=== PATIENT | male | born 1995 | race American Indian/Alaskan Native ===

== ENCOUNTER 2020-08-31 08:18 | Emergency (ER) | payer SELFPAY ==
--- NOTE | 2020-08-31 08:32 | Event Note ---
ED Screening Note Date of service: 08/31/20 Time: 08:31 ED Screening Note: Patient complains of lower abdominal pain and blood in the stools x2 days Denies nausea/vomiting Positive sign tenderness to palpation in RLQ on exam This initial assessment/diagnostic orders/clinical plan/treatment(s) is/are subject to change based on patients health status, clinical progression and re- assessment by fellow clinical providers in the ED. Further treatment and workup at subsequent clinical providers discretion. Patient/guardian urged not to elope from the ED as their condition may be serious if not clinically assessed and managed. Initial orders include: Labs CT
[2020-08-31 09:43] LABS: Basophils % (Auto) 2.5 % (0.0-1.8); Eosinophils % (Auto) 1.4 % (0.0-4.3); Hematocrit 41.6 % (35.5-45.6); Hemoglobin 13.8 gm/dl (11.8-15.2); Mean Corpuscular HGB Conc 33 % (32-34); Mean Corpuscular Volume 92 fl (84-94); Monocytes % (Auto) 8.4 % (0.0-7.3); Platelet Count 144 K/mm3 (140-440); Red Blood Count 4.53 M/mm3 (3.65-5.03); Red Cell Distribution Width 13.9 % (13.2-15.2)
[2020-08-31 09:44] LABS: Basophils # (Auto) 0.1 K/mm3 (0.0-0.1); Eosinophils # (Auto) 0.1 K/mm3 (0.0-0.4); Lymphocytes # (Auto) 1.3 K/mm3 (1.2-5.4); Monocytes # (Auto) 0.4 K/mm3 (0.0-0.8)
[2020-08-31 09:55] LABS: INR 0.88 (0.87-1.13)
[2020-08-31 09:56] LABS: Partial Thromboplastin Time 30.4 Sec. (24.2-36.6)
[2020-08-31 10:00] LABS: Alanine Aminotransferase 6 units/L (7-56); Albumin 3.8 g/dL (3.9-5); BUN/Creatinine Ratio 11; Blood Urea Nitrogen 10 mg/dL (9-20); Calcium 9.3 mg/dL (8.4-10.2); Hemolysis Index 2
[2020-08-31] MEDS ORDERED: fentaNYL 100 MCG/2 ML INJ IV ONE (10:08)
[2020-08-31] MEDS ORDERED: ONDANSETRON 4 MG/2 ML INJ IV ONE (10:08)
--- NOTE | 2020-08-31 10:10 | Emergency Department Report ---
HPI - General Chief Complaint: Abdominal Pain Time Seen by Provider: 08/31/20 08:29 - HPI HPI: Room 37 Patient is a 25-year-old male present with a chief complaint of abdominal pain and hematochezia. The patient states for the past 2 days she has had a constant lower abdominal pain. Patient states he also noticed a blood clot in the toilet after having a bowel movement. Patient admits to rectal pain with bowel movements. Patient denies nausea vomiting or diarrhea. Patient denies history of fever. Patient currently gives his pain a score of 8/10 ED Past Medical Hx - Past Medical History Previous Medical History?: Yes Hx HIV: Yes - Surgical History Past Surgical History?: No - Family History Family history: no significant - Social History Smoking Status: Current Some Day Smoker Substance Use Type: Alcohol (Occasional), Marijuana - Medications Home Medications: Home Medications Medication Instructions Recorded Confirmed Last Taken Type Hydrocortisone [Anucort-HC SUPPOS] 25 mg RC BID #10 supp.rect 08/31/20 Unknown Rx traMADoL [Ultram] 50 mg PO Q6HR PRN #10 tablet 08/31/20 Unknown Rx ED Review of Systems ROS: Stated complaint: STOMACH PAIN/BLLOD IN STOOL Other details as noted in HPI Constitutional: denies: fever Eyes: denies: eye pain ENT: denies: throat pain Respiratory: no symptoms reported Cardiovascular: denies: chest pain Endocrine: no symptoms reported Gastrointestinal: abdominal pain, hematochezia. denies: nausea, diarrhea Genitourinary: denies: urgency Musculoskeletal: denies: back pain Neurological: denies: headache Physical Exam - Physical Exam Vital Signs: Vital Signs 08/31/20 08:31 Temperature 98.2 F Pulse Rate 107 H Respiratory 16 Rate Blood Pressure 118/57 O2 Sat by Pulse 98 Oximetry Physical Exam: GENERAL: The patient is well-developed well-nourished male lying on stretcher not appearing to be in acute distress. [] HEENT: Normocephalic. Atraumatic. Extraocular motions are intact. Patient has moist mucous membranes. NECK: Supple. Trachea midline CHEST/LUNGS: Clear to auscultation. There is no respiratory distress noted. HEART/CARDIOVASCULAR: Regular. There is no tachycardia. There is no gallop rub or murmur. ABDOMEN: Abdomen is soft, with tenderness to palpation in the left upper quadrant and left lower quadrant. Patient has normal bowel sounds. There is no abdominal distention. SKIN: There is no rash. There is no edema. There is no diaphoresis. NEURO: The patient is awake, alert, and oriented. The patient is cooperative. The patient has normal speech MUSCULOSKELETAL: There is no evidence of acute injury. ED Course Vital Signs 08/31/20 08:31 Temperature 98.2 F Pulse Rate 107 H Respiratory 16 Rate Blood Pressure 118/57 O2 Sat by Pulse 98 Oximetry ED Medical Decision Making - Lab Data Result diagrams: 08/31/20 08:49 08/31/20 08:49 Laboratory Tests 08/31/20 08/31/20 08/31/20 08:49 08:49 08:49 WBC 4.4 L RBC 4.53 Hgb 13.8 Hct 41.6 MCV 92 MCH 31 MCHC 33 RDW 13.9 Plt Count 144 Lymph % (Auto) 29.0 Kern % (Auto) 8.4 H Eos % (Auto) 1.4 Baso % (Auto) 2.5 H Lymph # (Auto) 1.3 Kern # (Auto) 0.4 Eos # (Auto) 0.1 Baso # (Auto) 0.1 Add Manual Diff Complete Seg Neutrophils % 58.7 Seg Neutrophils # 2.6 PT 11.7 L INR 0.88 APTT 30.4 Sodium 139 Potassium 4.1 Chloride 104.2 Carbon Dioxide 30 Anion Gap 9 BUN 10 Creatinine 0.9 Estimated GFR > 60 BUN/Creatinine Ratio 11 Glucose 66 L Calcium 9.3 Total Bilirubin 0.40 AST 12 ALT 6 L Alkaline Phosphatase 47 Total Protein 8.0 Albumin 3.8 L Albumin/Globulin Ratio 0.9 Lipase 16 - Radiology Data Radiology results: report reviewed (CT abdomen pelvis), image reviewed (CT abdomen pelvis) [facility] [address] [place] [address] Cat Scan Report Signed Patient: ISMAEL WALKER R#: [id number] : 1995 Acct:[id number] Age/Sex: 25 / M ADM Date: 08/31/20 Loc: ED Attending Dr: Ordering Physician: VENTURA PEREZ Date of Service: 08/31/20 Proce dure(s): CT abdomen pelvis w con Accession Number(s): [id number] cc: VENTURA PEREZ CT abdomen pelvis w con INDICATION: MAIN. TECHNIQUE: All CT scans at this location are performed using CT dose reduction for ALARA by means of automated exposure control. COMPARISON: None available. FINDINGS: Lung bases are clear of acute disease. Liver, spleen, pancreas, and adrenals are negative. 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 Abdominal aorta is normal in size. No adenopathy. Pelvis Appendix cannot be identified in this very thin patient. I see no inflammatory change in the right lower quadrant. No free fluid. Urinary bladder is negative. IMPRESSION: 1. No acute abnormalities. Appendix cannot be identified. Signer Name: Juan Junior MD Signed: 08/31/2020 11:40 AM Workstation Name: [id number] Transcribed By: TM Dictated By: Juan Junior MD Electronically Authenticated By: Juan Junior MD Signed Date/Time: 08/31/20 1140 DD/ 1137 TD/TT: - Differential Diagnosis Hemorrhoids, proctitis, colitis, diverticulitis Critical care attestation.: If time is entered above; I have spent that time in minutes in the direct care of this critically ill patient, excluding procedure time. ED Disposition Clinical Impression: Abdominal pain, Hematochezia Disposition: - TO HOME OR SELFCARE Is pt being admited?: No Does the pt Need Aspirin: No Condition: Stable Additional Instructions: Return to the emergency department should you develop worsening symptoms, inability to tolerate food or liquids, high fever or any other concerns Prescriptions: Hydrocortisone [Anucort-HC SUPPOS] 25 mg RC BID #10 supp.rect traMADoL [Ultram] 50 mg PO Q6HR PRN #10 tablet PRN Reason: Pain Referrals: PRIMARY CAREMD [Primary Care Provider] - 3-5 Days LEONA YOUSSEF MD [Staff Physician] - 3-5 Days (Dr. Youssef is a clip on sunglasses inspector. Please follow-up with him for further evaluation) Time of Disposition: 12:10
--- NOTE | 2020-08-31 11:44 | Cat Scan Report ---
CT abdomen pelvis w con INDICATION: MAIN. TECHNIQUE: All CT scans at this location are performed using CT dose reduction for ALARA by means of automated e xposure control. COMPARISON: None available. FINDINGS: Lung bases are clear of acute disease. Liver, spleen, pancreas, and adrenals are negative. "Horsesho e" anomaly of the kidneys, with a simple appearing cyst in the very inferior right kidney. Abdominal aorta is normal in size. No adenopathy. Pelvis Appendix cannot be identified in this very thin patient. I see no inflammatory change in the right lo wer quadrant. No free fluid. Urinary bladder is negative. IMPRESSION: 1. No acute abnormalities. Appendix cannot be identified. Signer Name: Juan Juinor MD Signed: 08/31/2020 11:40 AM Workstation Name: [id number]
[2020-08-31 12:10] LABS: Bilirubin,Urine NEG (Negative); Blood,Urine NEG (Negative); Color,Urine Yellow (Yellow); Mucus,Urine FEW /HPF; Protein,Urine <15 mg/dL mg/dL (Negative); Urobilinogen,Urine < 2.0 mg/dL (<2.0)
[2020-08-31 12:31] VITALS: BP 105/65
== END 2020-08-31 12:38 | disposition home or self-care (01) ==
LOC: ED 08:18
DX: K92.1 Melena (principal); R10.9 Unspecified abdominal pain; F17.200 Nicotine dependence, unspecified, uncomplicated; F12.90 Cannabis use, unspecified, uncomplicated; Z79.899 Other long term (current) drug therapy; Z21 Asymptomatic human immunodeficiency virus [HIV] infection status
CPT/HCPCS: 36415; 74177; 80053; 81001; 82271; 83690; 85025; 85610; 85730; 87086; 96374; 96375; 99284; J2405; J3010; Q9967

== ENCOUNTER 2020-09-01 01:46 | Emergency (ER) | payer SELFPAY ==
[2020-09-01 02:10] VITALS: BP 140/72
[2020-09-01] MEDS ORDERED: HYDROcodone/ACETAMINOPHEN 5-325 MG TAB PO ONE (02:56)
--- NOTE | 2020-09-01 03:02 | Emergency Department Report ---
ED Abdominal Pain HPI - General Chief Complaint: GI Bleed Stated Complaint: BLOOD IN STOOL/ABDOMINAL AND BACK PAIN Time Seen by Provider: 09/01/20 02:35 Source: patient Mode of arrival: Ambulatory Limitations: No Limitations - History of Present Illness Initial Comments: Patient is a 25-year-old F [place]an male who is complaining of some lower abdominal discomfort and rectal bleeding. Bleeding is bright red blood per rectum with bowel movements only. States that bowel movements are painful. He has some suprapubic and lower back pain as well. Patient was here earlier today but returned because he was still in pain. He has not gotten his prescriptions for Proctofoam and Vicodin filled as of yet. Patient states he is unable to get this medication until tomorrow. Patient states he has had 2 further bowel movements which were bloody. Patient had a CT of the abdomen pelvis which was normal. States he has had rectal intercourse - Related Data Previous Rx's Medication Instructions Recorded Last Taken Type Hydrocortisone [Anucort-HC SUPPOS] 25 mg RC BID #10 supp.rect 08/31/20 Unknown Rx traMADoL [Ultram] 50 mg PO Q6HR PRN #10 tablet 08/31/20 Unknown Rx Allergies Allergy/AdvReac Type Severity Reaction Status Date / Time No Known Allergies Allergy Unverified 08/31/20 08:30 ED Review of Systems ROS: Stated complaint: BLOOD IN STOOL/ABDOMINAL AND BACK PAIN Other details as noted in HPI Comment: All other systems reviewed and negative ED Past Medical Hx - Past Medical History Previous Medical History?: Yes Hx HIV: Yes - Surgical History Past Surgical History?: No - Social History Smoking Status: Current Every Day Smoker Substance Use Type: Alcohol - Medications Home Medications: Home Medications Medication Instructions Recorded Confirmed Last Taken Type Hydrocortisone [Anucort-HC SUPPOS] 25 mg RC BID #10 supp.rect 08/31/20 Unknown Rx traMADoL [Ultram] 50 mg PO Q6HR PRN #10 tablet 08/31/20 Unknown Rx ED Physical Exam - General Limitations: No Limitations General appearance: alert, in no apparent distress - Head Head exam: Present: atraumatic, normocephalic - Eye Eye exam: Present: normal appearance, PERRL, EOMI - ENT ENT exam: Present: mucous membranes moist - Neck Neck exam: Present: normal inspection - Respiratory Respiratory exam: Present: normal lung sounds bilaterally. Absent: respiratory distress, wheezes, rales - Cardiovascular Cardiovascular Exam: Present: regular rate, normal rhythm, normal heart sounds. Absent: systolic murmur, diastolic murmur, rubs, gallop - GI/Abdominal GI/Abdominal exam: Present: soft, tenderness (Suprapubic), normal bowel sounds. Absent: distended, guarding, rebound, rigid - Rectal Rectal exam: Present: deferred - Extremities Exam Extremities exam: Present: normal inspection - Back Exam Back exam: Present: normal inspection - Neurological Exam Neurological exam: Present: alert, oriented X3 - Psychiatric Psychiatric exam: Present: normal affect, normal mood - Skin Skin exam: Present: warm, dry, intact, normal color. Absent: rash ED Course Vital Signs 09/01/20 02:07 Temperature 98.1 F Pulse Rate 97 H Respiratory 18 Rate Blood Pressure 140/72 O2 Sat by Pulse 98 Oximetry ED Medical Decision Making - Medical Decision Making Because of the patient's sexual orientation and recent rectal intercourse also add antibiotics to the patient's regimen. Patient given coverage for gonorrhea chlamydia here in emergency department and will add cipro for outpt coverage Critical care attestation.: If time is entered above; I have spent that time in minutes in the direct care of this critically ill patient, excluding procedure time. ED Disposition Clinical Impression: Proctitis, Hematochezia Disposition: - TO HOME OR SELFCARE Is pt being admited?: No Does the pt Need Aspirin: No Condition: Stable Referrals: PRIMARY CARE, [Primary Care Provider] - 3-5 Days Time of Disposition: 03:04
[2020-09-01] MEDS ORDERED: AZITHROMYCIN 250 MG TAB PO ONE (03:04)
[2020-09-01] MEDS ORDERED: LIDOCAINE-MPF (1%) 10 MG/1 ML VIAL 5 ML INFILTRATI ONE (03:04)
== END 2020-09-01 03:15 | disposition home or self-care (01) ==
LOC: ED 01:46
DX: K62.89 Other specified diseases of anus and rectum (principal); K92.1 Melena; F17.200 Nicotine dependence, unspecified, uncomplicated; Z79.899 Other long term (current) drug therapy; Z21 Asymptomatic human immunodeficiency virus [HIV] infection status
CPT/HCPCS: 96372; 99282; J0696

== ENCOUNTER 2021-03-25 06:34 | Emergency (ER) | payer BC, MEDICAID ==
[2021-03-25 07:17] VITALS: BP 110/79
[2021-03-25 07:59] LABS: Hematocrit 38.9 % (35.5-45.6); Hemoglobin 13.2 gm/dl (11.8-15.2); Mean Corpuscular HGB Conc 34 % (32-34); Mean Corpuscular Volume 91 fl (84-94); Platelet Count 128 K/mm3 (140-440); Red Cell Distribution Width 14.3 % (13.2-15.2)
[2021-03-25 08:21] LABS: Alanine Aminotransferase 11 units/L (7-56); Albumin 4.1 g/dL (3.9-5); Blood Urea Nitrogen 6 mg/dL (9-20); Calcium 9.3 mg/dL (8.4-10.2); Hemolysis Index 4
[2021-03-25 08:36] LABS: Basophils % (Auto) 0.3 % (0.0-1.8); Eosinophils # (Auto) 0.1 K/mm3 (0.0-0.4); Eosinophils % (Auto) 1.8 % (0.0-4.3); Lymphocytes # (Auto) 1.8 K/mm3 (1.2-5.4); Lymphocytes % (Auto) 39.7 % (13.4-35.0); Monocytes # (Auto) 0.5 K/mm3 (0.0-0.8); Monocytes % (Auto) 11.7 % (0.0-7.3)
[2021-03-25 08:42] LABS: BUN/Creatinine Ratio 12
--- NOTE | 2021-03-25 08:59 | Emergency Department Report ---
ED GI Bleed HPI - General Chief complaint: GI Bleed Stated complaint: RECTAL BLEEDING Time Seen by Provider: 03/25/21 08:37 Source: patient Mode of arrival: Ambulatory Limitations: No Limitations - History of Present Illness Initial comments: 26-year-old -Togol[place] male presents to the emergency room reporting he has been having intermittent rectal bleeding for the last 4 days. Patient states that the blood is bright red. Patient reports has a history of hemorrhoids and actually had hemorrhoids removed internally. Patient denies any dizziness shortness of breath chest pain. Patient does admit he sleeps with men but has refrain from rectal intercourse for a while secondary to this discomfort. Patient is immune compromised and is currently on Truvada and is followed by Dr. Loreta Nunn infectious disease provider with appointment 1 Breanne navarro MD complaint: blood on toilet paper, blood streaked stool Onset/Timin -: days(s) Severity scale (0 -10): 0 Consistency: intermittent Improves with: none Worsens with: none Context: hemorrhoids, rectal trauma Associated Symptoms: denies other symptoms - Related Data Previous Rx's Medication Instructions Recorded Last Taken Type traMADoL [Ultram] 50 mg PO Q6HR PRN #10 tablet 08/31/20 Unknown Rx Ciprofloxacin HCl [Ciprofloxacin 500 mg PO Q12HR #14 tab 09/01/20 Unknown Rx TAB] Hydrocortisone [Anucort-HC SUPPOS] 25 mg RC BID #10 supp.rect 03/25/21 Unknown Rx Allergies Allergy/AdvReac Type Severity Reaction Status Date / Time No Known Allergies Allergy Unverified 08/31/20 08:30 ED Review of Systems ROS: Stated complaint: RECTAL BLEEDING Other details as noted in HPI Comment: All other systems reviewed and negative ED Past Medical Hx - Past Medical History Previous Medical History?: Yes Hx HIV: Yes - Surgical History Past Surgical History?: No - Social History Smoking Status: Current Every Day Smoker Substance Use Type: Alcohol - Medications Home Medications: Home Medications Medication Instructions Recorded Confirmed Last Taken Type traMADoL [Ultram] 50 mg PO Q6HR PRN #10 tablet 08/31/20 Unknown Rx Ciprofloxacin HCl [Ciprofloxacin 500 mg PO Q12HR #14 tab 09/01/20 Unknown Rx TAB] Hydrocortisone [Anucort-HC SUPPOS] 25 mg RC BID #10 supp.rect 03/25/21 Unknown Rx ED Physical Exam - General Limitations: No Limitations General appearance: alert, in no apparent distress - Head Head exam: Present: atraumatic, normocephalic - Eye Eye exam: Present: normal appearance - ENT ENT exam: Present: mucous membranes moist - Neck Neck exam: Present: normal inspection, full ROM - Respiratory Respiratory exam: Absent: chest wall tenderness, accessory muscle use - Cardiovascular Cardiovascular Exam: Present: regular rate - GI/Abdominal GI/Abdominal exam: Present: soft, normal bowel sounds - Rectal Rectal exam: Present: normal inspection, decreased rectal tone. Absent: hemorrhoids - Back Exam Back exam: Present: normal inspection, full ROM - Neurological Exam Neurological exam: Present: alert, oriented X3, normal gait - Psychiatric Psychiatric exam: Present: normal affect, normal mood - Skin Skin exam: Present: warm, dry, intact, normal color. Absent: rash ED Course Vital Signs 03/25/21 07:16 Temperature 97.4 F L Pulse Rate 61 Respiratory 18 Rate Blood Pressure 110/79 O2 Sat by Pulse 100 Oximetry ED Medical Decision Making - Lab Data Result diagrams: 03/25/21 07:30 03/25/21 07:30 - Medical Decision Making 26-year-old -Tog[place] male presents to the emergency room reporting he has been having intermittent rectal bleeding for the last 4 days. Patient states that the blood is bright red. Patient reports has a history of hemorrhoids and actually had hemorrhoids removed internally. Patient denies any dizziness shortness of breath chest pain. Patient does admit he sleeps with men but has refrain from rectal intercourse for a while secondary to this discomfort. Patient is immune compromised and is currently on Truvada and is followed by Dr. Loreta Nunn infectious disease provider with appointment 30 March. Patient is hemodynamically stable no signs of blood loss. Patient will be discharged home with a prescription for an Anusol rectal suppositories and a referral to a immigration lawyer. Critical care attestation.: If time is entered above; I have spent that time in minutes in the direct care of this critically ill patient, excluding procedure time. ED Disposition Clinical Impression: Hemorrhoids, internal Disposition: DC-01 TO HOME OR SELFCARE Is pt being admited?: No Does the pt Need Aspirin: No Condition: Stable Instructions: Hemorrhoids, [id number], Nonsurgical Procedures for Hemorrhoids, Care After Additional Instructions: It is very important for you to follow-up with your immigration lawyer/colorectal specialist in the next 2 to 3 days. Blood work was stable. Use Anusol rectal suppositories as needed. Patient to increase your fluid intake. You can try [id number] MiraLAX to help with moving your stool. I recommend Colace which is [id number] stool softener. Prescriptions: Hydrocortisone [Anucort-HC SUPPOS] 25 mg RC BID #10 supp.rect Referrals: PRIMARY CARE, [Primary Care Provider] - 3-5 Days [facility] [Provider Group] - 3-5 Days Forms: Accompanied Note, Work/School Release Form(ED) Time of Disposition: 09:03
== END 2021-03-25 09:14 | disposition home or self-care (01) ==
LOC: ED 06:34
DX: K64.8 Other hemorrhoids (principal); B20 Human immunodeficiency virus [HIV] disease; F17.200 Nicotine dependence, unspecified, uncomplicated
CPT/HCPCS: 36415; 80053; 85025; 99283